=== PATIENT | male | born 1990 | race Caucasian/White ===

== ENCOUNTER 2019-12-27 09:01 | Emergency (ER) | payer OTHER ==
[2019-12-27 09:31] VITALS: BP 138/73
[2019-12-27 09:58] LABS: Influenza A Molecular POSITIVE (Negative)
--- NOTE | 2019-12-27 10:34 | UC ---
FLU HPI - HPI Summary HPI Summary: 29-year-old male presenting with fever, chills, body aches, and nausea since last night. Denies sore throat, nasal congestion. Notes mild cough. Denies shortness breath and wheezing. Denies vomiting. Took one ibuprofen tablet last night at 3am. - History of Current Complaint Chief Complaint: UCGeneralIllness Stated Complaint: COUGH FEVER EYES HURT Hx Obtained From: Patient Pain Intensity: 7 Pain Scale Used: 0-10 Numeric - Allergy/Home Medications Allergies/Adverse Reactions: Allergies Allergy/AdvReac Type Severity Reaction Status Date / Time No Known Allergies Allergy Verified 12/27/19 09:31 Home Medications: Home Medications Ibuprofen TAB* [Motrin TAB*] 800 mg PO BID PRN 11/15/14 [History Confirmed 11/21] Oseltamivir CAP* [Tamiflu CAP*] 75 mg PO BID #10 cap 12/27/19 [Rx] PMH/Surg Hx/FS Hx/Imm Hx - Surgical History Surgical History: Yes Surgery Procedure, Year, and Place: TOOTH EXTRACTION acl repair right6 - Family History Known Family History: Positive: Non-Contributory - Social History Alcohol Use: None Substance Use Type: None Smoking Status (MU): Light Every Day Tobacco Smoker Type: Cigarettes Amount Used/How Often: 1/2 ppd X 3-4 YEARS Length of Time of Smoking/Using Tobacco: 4 years Have You Smoked in the Last Year: Yes Review of Systems All Other Systems Reviewed And Are Negative: Yes Constitutional: Positive: Fever, Chills ENT: Negative: Sore Throat, Sinus Congestion Respiratory: Positive: Cough. Negative: Shortness Of Breath Cardiovascular: Positive: Negative Gastrointestinal: Positive: Negative Musculoskeletal: Positive: Myalgia Neurological/Mental Status: Positive: Negative Physical Exam - Summary Physical Exam Summary: Vital Signs Reviewed: Yes A+Ox3, no distress, well-appearing Eyes: Conjunctiva Clear ENT: Hearing grossly normal, TM x 2 clear, moist, uvula midline, no exudate, no erythema Neck: Positive: Supple Respiratory: Positive: No respiratory distress, No accessory muscle use + CTA throughout no w/r Cardiovascular: tachycardia, regular rhythm nl s1, s2 no m/r Musculoskeletal Exam: SHANNON x 4 without difficulty Neurological: Positive: Alert Psychological: Positive: age appropriate behavior Skin: Positive: no rash, no ecchymosis Vital Signs: Initial Vital Signs Temp 100.9 F 12/27/19 09:27 Pulse 110 12/27/19 09:27 Resp 20 12/27/19 09:27 BP 138/73 12/27/19 09:27 Pulse Ox 100 12/27/19 09:27 Lab Results 12/27/19 Range/Units 09:53 Influenza A (Rapid) Positive H (Negative) Flu Course/Dx - Course Course Of Treatment: Rapid flu positive. I treated patient with Tamiflu and instructed to continue with symptomatic treatment. Instructed to follow up with pcp for any new or worsening symptoms. Patient voiced understanding and agreed with treatment plan. - Differential Dx/Diagnosis Differential Diagnosis/HQI/PQRI: Influenza, Upper Respiratory Infection Provider Diagnosis: Influenza A Discharge ED - Sign-Out/Discharge Documenting (check all that apply): Patient Departure All imaging exams completed and their final reports reviewed: No Studies - Discharge Plan Condition: Stable Disposition: HOME Prescriptions: Oseltamivir CAP* [Tamiflu CAP*] 75 mg PO BID #10 cap Patient Education Materials: Influenza (ED) Referrals: Daniel Cannon MD [Primary Care Provider] - If Needed Additional Instructions: As discussed, you tested positive for influenza today. Take tamiflu as prescribed. You may continue with motrin for fever and pain relief. Get plenty of rest and increase your fluid intake. Follow up with your primary care provider if symptoms do not improve within 7 days. - Billing Disposition and Condition Condition: STABLE Disposition: Home
== END 2019-12-27 10:40 | disposition home or self-care (01) ==
LOC: UCEAST 09:01
DX: J10.1 Influenza due to other identified influenza virus with other respiratory manifestations (principal); F17.210 Nicotine dependence, cigarettes, uncomplicated
CPT/HCPCS: 99202; G0463